=== PATIENT | female | born 1960 | race Caucasian/White ===

== ENCOUNTER 2020-07-19 08:51 | Emergency (ER) | payer OTHER ==
[2020-07-19] MEDS ORDERED: MORPHINE 4 MG/ML SYR ONE (09:16)
[2020-07-19] MEDS ORDERED: ONDANSETRON 4 MG/2 ML VIAL ONE (09:16)
[2020-07-19] MEDS ORDERED: HYDROMORPHONE HCL 1 MG/ML INJ ONE ×3 (09:47→13:49)
--- NOTE | 2020-07-19 09:54 | RAD REPORT ---
EXAM DESCRIPTION: RAD - Ankle Left 3 View -07/19/2020 9:42 am CLINICAL HISTORY: Left ankle pain status post injury FINDINGS: Comminuted lateral malleolar fracture with marked displacement of the fracture fragments a nd angulation present at the fracture site. Avulsion fracture medial malleolus. Possible posterior malleolar fracture. Posterior ankle dislocation
[2020-07-19] MEDS ORDERED: NA CHLORIDE 0.9% 1,000 ML ONE (10:24)
[2020-07-19] MEDS ORDERED: KETAMINE HCL 500 MG/5 ML VIAL ONE (10:24)
--- NOTE | 2020-07-19 11:37 | EDPHYS ---
Physician Documentation [facility] Name: Madison Garcia Age: 60 yrs Sex: Female : 1960 Arrival Date: 07/19/2020 Time: 08:54 Bed 19 Private MD: ED Physician Lawrence Khalil HPI: 07/19 10:31 This 60 yrs old Female presents to ER via Wheelchair with complaints of Ankle ma2 Injury, Vomiting. 10:31 The patient presents with decreased range of motion, a deformity. The complaints affect ma2 the right ankle. Onset: The symptoms/episode began/occurred suddenly, 1 hour(s) ago. Context: The problem was sustained at home, resulted from the patient falling. Associated signs and symptoms: Pertinent negatives: nausea, swelling, vomiting, warmth. Severity of symptoms: At their worst the symptoms were mild, in the emergency department the symptoms are unchanged. The patient has not experienced similar symptoms in the past. Historical: - Allergies: 09:06 No Known Allergies; ss - PMHx: 09:06 Hypertension; Depression; ss - Immunization history:: Adult Immunizations up to date. - Social history:: Smoking status: Patient denies any tobacco usage or history of. - Family history:: not pertinent. ROS: 10:31 Constitutional: Negative for fever, chills, and weight loss. ma2 10:31 All other systems are negative. Exam: 10:31 Constitutional: This is a well developed, well nourished patient who is awake, alert, ma2 and in no acute distress. Chest/axilla: Normal chest wall appearance and motion. Nontender with no deformity. No lesions are appreciated. Cardiovascular: Regular rate and rhythm with a normal S1 and S2. No gallops, murmurs, or rubs. Normal PMI, no JVD. No pulse deficits. Respiratory: Lungs have equal breath sounds bilaterally, clear to auscultation and percussion. No rales, rhonchi or wheezes noted. No increased work of breathing, no retractions or nasal flaring. Abdomen/GI: Soft, non-tender, with normal bowel sounds. No distension or tympany. No guarding or rebound. No evidence of tenderness throughout. Back: No spinal tenderness. No costovertebral tenderness. Full range of motion. Skin: Warm, dry with normal turgor. Normal color with no rashes, no lesions, and no evidence of cellulitis. MS/ Extremity: lateral dislocation deformity of right ankle with pain Pulses equal, no cyanosis. Neurovascular intact. Full, normal range of motion. Neuro: Awake and alert, GCS 15, oriented to person, place, time, and situation. Cranial nerves II-XII grossly intact. Motor strength 5/5 in all extremities. Sensory grossly intact. Cerebellar exam normal. Normal gait. Psych: Awake, alert, with orientation to person, place and time. Behavior, mood, and affect are within normal limits. Vital Signs: 09:02 BP 144 / 64; Pulse 66; Resp 24; Temp 97.3(TE); Pulse Ox 99% on R/A; Weight 61.23 kg; ss Height 5 ft. 0 in. (152.40 cm); Pain 10/10; 10:30 BP 148 / 70; Pulse 87; Resp 18; Pulse Ox 99% on R/A; em 11:47 BP 157 / 80; Pulse 82; Resp 18; Pulse Ox 99% on R/A; Pain 3/10; em 13:30 BP 161 / 93; Pulse 78; Resp 18; Pulse Ox 97% on R/A; em 09:02 Body Mass Index 26.37 (61.23 kg, 152.40 cm) ss Procedures: 10:31 Reduction: of the right ankle, using traction, manipulation, Immobilized with splint ma2 short leg posterior w stirrup . Patient tolerated well. Post reduction film - reveals normal alignment. neurovascular itnact . MDM: 08:59 Patient medically screened. ma2 10:31 Differential diagnosis: fracture, sprain, closed lateral malleular fracture with ma2 dislocation. Data reviewed: vital signs, nurses notes. Counseling: I had a detailed discussion with the patient and/or guardian regarding: the historical points, exam findings, and any diagnostic results supporting the discharge/admit diagnosis, the presence of at least one elevated blood pressure reading (>120/80) during this emergency department visit, the need for outpatient follow up. Response to treatment: the patient's symptoms have markedly improved after treatment. 11:37 ED course: post reduction film is non satisfactory, patient does have pulses and brisk ma2 cap refill and able to move all toes, foot and ankle.. she will need emergent transfer for ortho eval,, no ortho oncall available in our hospital . 07/19 10:16 Order name: Ankle Right 2 View; Complete Time: 10:46 EDMS 07/19 10:47 Order name: Ankle Right 2 View XRAY: post reduction; Complete Time: 13:34 ma2 07/19 09:04 Order name: Splint - Long Leg: Posterior w/ Stirrup: short leg please not long; ma2 Complete Time: 10:55 Administered Medications: 09:05 Drug: Zofran (Ondansetron) 4 mg Route: IVP; Site: right antecubital; em 09:35 Follow up: Response: No adverse reaction em 09:07 Drug: morphine 4 mg Route: IVP; Site: right antecubital; em 09:35 Follow up: Response: No adverse reaction; No change in condition em 09:37 Drug: Dilaudid 1 mg Route: IVP; Site: right antecubital; em 09:56 Follow up: Response: No adverse reaction; Marked relief of symptoms; Pain is decreased; em RASS: Alert and Calm (0) 10:35 Drug: NS 0.9% 1000 ml Route: IV; Rate: 1 bolus; Site: right antecubital; ll1 12:37 Follow up: IV Status: Completed infusion; IV Intake: 1000ml em 10:35 Drug: Ketamine 60 mg {Note: administered 30 mg at 1035 then 30 mg at 1037.} Route: IVP; ll1 Site: right antecubital; 10:37 Follow up: Response: No adverse reaction; Patient is sedated em 13:13 Drug: Dilaudid 1 mg Route: IVP; Site: right antecubital; em 13:30 Follow up: Response: No adverse reaction; Marked relief of symptoms; Pain is unchanged, em physician notified 13:38 Drug: Dilaudid 1 mg Route: IVP; Site: right antecubital; em 13:45 Follow up: Response: Medication administered at discharge. em Disposition: 07/19/20 11:37 Transfer ordered to [facility]. Diagnosis are Bimalleolar fracture of lower leg - right , Dislocation of right ankle joint. - Reason for transfer: Higher level of care. - Accepting physician is dr. Mosquera. - Condition is Stable. - Problem is new. - Symptoms are unchanged. Signatures: Dispatcher [employer] EDMS Eduardo Cannon, RN RN em Yin Cherry RN RN Lawrence Khalil MD MD ma2 Golden Walker RN RN ll1 Corrections: (The following items were deleted from the chart) 10:16 09:04 Ankle Left 3 View+RAD.RAD.BRZ ordered. [facility] 13:47 11:37 07/19/2020 11:37 Transfer ordered to [facility]. Diagnosis is em Bimalleolar fracture of lower leg - right ; Dislocation of right ankle joint. Reason for transfer: Higher level of care. Accepting physician is dr. Mosquera. Condition is Stable. Problem is new. Symptoms are unchanged. ma2
--- NOTE | 2020-07-19 11:37 | ER ---
Nurse's Notes [facility] Name: Madison Garcia Age: 60 yrs Sex: Female : 1960 Arrival Date: 07/19/2020 Time: 08:54 Bed 19 Private MD: Diagnosis: Bimalleolar fracture of lower leg-right ;Dislocation of right ankle joint Presentation: 07/19 09:02 Chief complaint: Patient states: R ankle pain after missing last two steps on stairs. ss Obvious deformity noted. Coronavirus screen: Client denies travel out of the [place] in the last 14 days. Ebola Screen: Patient denies exposure to infectious person. Patient denies travel to an Ebola-affected area in the 21 days before illness onset. Initial Sepsis Screen: Does the patient meet any 2 criteria? RR > 20 per min. Does the patient have a suspected source of infection? No. Patient's initial sepsis screen is negative. Risk Assessment: Do you want to hurt yourself or someone else? Patient reports no desire to harm self or others. Onset of symptoms was July 19, 2020. 09:02 Method Of Arrival: Wheelchair ss 09:02 Acuity: ANGELICA 2 ss Historical: - Allergies: 09:06 No Known Allergies; ss - PMHx: 09:06 Hypertension; Depression; ss - Immunization history:: Adult Immunizations up to date. - Social history:: Smoking status: Patient denies any tobacco usage or history of. - Family history:: not pertinent. Screenin:00 Abuse screen: Denies threats or abuse. Nutritional screening: No deficits noted. em Tuberculosis screening: No symptoms or risk factors identified. Fall Risk None identified. Assessment: 09:00 General: Appears uncomfortable, Behavior is calm, cooperative. Pain: Complains of pain em in right ankle Pain currently is 10 out of 10 on a pain scale. Neuro: Level of Consciousness is awake, alert, obeys commands, Oriented to person, place, time, situation, Appropriate for age. Cardiovascular: Capillary refill < 3 seconds Patient's skin is warm and dry. Respiratory: Airway is patent Respiratory effort is even, unlabored, Respiratory pattern is regular, symmetrical. Derm: Skin is intact, is healthy with good turgor, Skin is pink, warm \T\ dry. Musculoskeletal: Range of motion: limited in right ankle Bony deformity noted of right ankle. 10:30 Reassessment: set up for conscious sedation, placed on NC at 2 L, placed on the monitor em and started IV fluids. 11:35 Reassessment: x-ray at bedside. em 11:47 Reassessment: Patient appears in no apparent distress at this time. Patient and/or em family updated on plan of care and expected duration. Pain level reassessed. Patient is alert, oriented x 3, equal unlabored respirations, skin warm/dry/pink. Patient states feeling better. 11:50 Reassessment: report given to MELISSA Gilbert at [facility], pending EMS em transportation. 13:01 Reassessment: reports pain is coming back, rates pain 8/10, Dr. Khalil notified, em received VO for 1 mg Dilaudid IVP x 1. 13:30 Reassessment: reports Dilaudid did not help, provider notified, new medication ordered. em 13:40 Reassessment: report given to [facility]. em Vital Signs: 09:02 BP 144 / 64; Pulse 66; Resp 24; Temp 97.3(TE); Pulse Ox 99% on R/A; Weight 61.23 kg; ss Height 5 ft. 0 in. (152.40 cm); Pain 10/10; 10:30 BP 148 / 70; Pulse 87; Resp 18; Pulse Ox 99% on R/A; em 11:47 BP 157 / 80; Pulse 82; Resp 18; Pulse Ox 99% on R/A; Pain 3/10; em 13:30 BP 161 / 93; Pulse 78; Resp 18; Pulse Ox 97% on R/A; em 09:02 Body Mass Index 26.37 (61.23 kg, 152.40 cm) ED Course: 08:54 Patient arrived in ED. ds1 08:59 Lawrence Khalil MD is Attending Physician. ma2 09:00 Patient has correct armband on for positive identification. Bed in low position. Call em light in reach. Side rails up X2. Adult w/ patient. Pulse ox on. NIBP on. 09:00 Inserted saline lock: 20 gauge in right antecubital area, using aseptic technique. em 09:06 Triage completed. ss 09:06 Arm band placed on left wrist. ss 09:07 Eduardo Cannon, RN is Primary Nurse. em 10:40 Assist provider with reduction of right ankle using traction, Set up for procedure. em Performed by Lawrence Khalil MD Immobilized with Orthoglass Patient tolerated well. 10:45 Orthoglass splint: Posterior short lleg splint applied on right leg. stirrup splint dh3 applied on right leg. capillary refill <3 seconds, assisted by Dr. Khalil. 11:12 Ankle Right 2 View XRAY: post reduction In Process Unspecified. EDMS 13:42 Patient transferred, IV remains in place. em Administered Medications: 09:05 Drug: Zofran (Ondansetron) 4 mg Route: IVP; Site: right antecubital; em 09:35 Follow up: Response: No adverse reaction em 09:07 Drug: morphine 4 mg Route: IVP; Site: right antecubital; em 09:35 Follow up: Response: No adverse reaction; No change in condition em 09:37 Drug: Dilaudid 1 mg Route: IVP; Site: right antecubital; em 09:56 Follow up: Response: No adverse reaction; Marked relief of symptoms; Pain is decreased; em RASS: Alert and Calm (0) 10:35 Drug: NS 0.9% 1000 ml Route: IV; Rate: 1 bolus; Site: right antecubital; ll1 12:37 Follow up: IV Status: Completed infusion; IV Intake: 1000ml em 10:35 Drug: Ketamine 60 mg {Note: administered 30 mg at 1035 then 30 mg at 1037.} Route: IVP; ll1 Site: right antecubital; 10:37 Follow up: Response: No adverse reaction; Patient is sedated em 13:13 Drug: Dilaudid 1 mg Route: IVP; Site: right antecubital; em 13:30 Follow up: Response: No adverse reaction; Marked relief of symptoms; Pain is unchanged, em physician notified 13:38 Drug: Dilaudid 1 mg Route: IVP; Site: right antecubital; em 13:45 Follow up: Response: Medication administered at discharge. em Intake: 12:37 IV: 1000ml; Total: 1000ml. em Outcome: 11:37 ER care complete, transfer ordered by . ma2 13:42 Transferred by ground EMS to [facility], Transfer form completed. X-rays sent em w/ patient. 13:42 Condition: stable 13:42 Instructed on the need for transfer, Demonstrated understanding of instructions. 13:47 Patient left the ED. em Signatures: Dispatcher [employer] EDEduardo Mccarthy RN RN Deana Spain ds1 Yin Cherry RN RN ss Herrera, Deanna 3 Lawrence Khalil MD MD ma2 Golden Walker RN RN ll1 Corrections: (The following items were deleted from the chart) 10:16 09:42 In radiology for Ankle Left 3 View+RAD.RAD.BRZ. EDMS EDMS 10:16 10:16 In radiology for Ankle Left 3 View+RAD.RAD.BRZ. EDMS EDMS
--- NOTE | 2020-07-19 11:58 | RAD REPORT ---
EXAM DESCRIPTION: RAD - Ankle Right 2 View - 07/19/2020 11:12 am CLINICAL HISTORY: Tibial fracture FINDINGS: Splint immobilizes fractures of the distal tibia/fibula. Posterior dislocation present
[2020-07-19 14:40] VITALS: TEMP 97.3
[2020-07-19 14:46] VITALS: BP 161/93; O2SAT 97
== END 2020-07-19 13:47 | disposition short-term general hospital (02) ==
LOC: ER 08:51
PROC: 0QSJXZZ Reposition Right Fibula, External Approach (ICD-10-PCS; principal; 2020-07-19)
PROC: 0QSGXZZ Reposition Right Tibia, External Approach (ICD-10-PCS; 2020-07-19)
DX: S82.841A Displaced bimalleolar fracture of right lower leg, initial encounter for closed fracture (principal); W19.XXXA Unspecified fall, initial encounter; Y93.9 Activity, unspecified; Y92.009 Unspecified place in unspecified non-institutional (private) residence as the place of occurrence of the external cause; I10 Essential (primary) hypertension
CPT/HCPCS: 96361; 73600 ×2; 96375; 96374; 99285; 27810; J1170 ×3; J7030; J2405